=== PATIENT | female | born 1950 | race Caucasian/White ===

== ENCOUNTER 2023-08-13 21:35 | Inpatient (IN) | payer MEDICARE ==
[~2023-08-13 21:35] MED LIST: Iopamidol 300 61% 100 ML VIAL FS ONE
[2023-08-13 22:09] LABS: #Monocytes 1.1 10x3/uL (0.0-1.1); #Neutrophils 19.8 10x3/uL (1.5-8.4); %Basophils 0.1 % (0.0-2.0); %Lymphocytes 8.8 % (18.0-47.0); %Monocytes 4.6 % (0.0-10.0); %Neutrophils 85.9 % (40.0-75.0); Hematocrit 37.9 % (34.9-44.5); Hemoglobin 12.6 g/dL (12.0-15.5); Mean Corpuscular HGB CONC 33.2 g/dL (32.0-36.0); Mean Corpuscular Volume 87.3 fl (81.6-98.3); Mean Platelet Volume 11.6 fl (7.4-10.4); Platelet Count 353 10x3/uL (150-450); RBC Distribution Width 13.2 % (11.5-14.5); Red Blood Cell (RBC) Count 4.34 10x6/uL (3.90-5.03); White Blood Cell (WBC) Count 23.1 10x3/uL (3.5-10.5)
[2023-08-13] MEDS ORDERED: Nitroglycerin 0.4 MG TAB (25 Tab Bottle) SL PRN (22:13)
[2023-08-13] MEDS ORDERED: Acetaminophen/Codeine 30-300mg Tablet PO PRN (22:13)
[2023-08-13] MEDS ORDERED: cloNIDine 0.1 MG TAB PO PRN (22:19)
[2023-08-13] MEDS ORDERED: GUAIFENESIN SF SOLN 200 MG/10 ML UDCUP PO PRN (22:19)
[2023-08-13] MEDS ORDERED: Benzonatate 100 MG CAP PO PRN (22:19)
[2023-08-13] MEDS ORDERED: Zolpidem Tartrate 5 MG TAB PO PRN (22:19)
[2023-08-13 22:24] LABS: ALT (SGPT) 18 U/L (8-55); AST (SGOT) 29 U/L (5-34); Albumin 3.7 g/dL (3.4-4.8); Alkaline Phosphatase 64 U/L (40-110); Anion Gap 17 mmol/L (10-20); BUN (Urea Nitrogen) 24 mg/dL (9.8-20.1); Bilirubin, Total 0.3 mg/dL (0.2-1.2); Calc. Creatinine Clearance 0 mL/min (70-130); Calcium 8.4 mg/dL (7.8-10.44); Carbon Dioxide 19 mmol/L (23-31); Chloride 106 mmol/L (98-107); Estimated GFR 80; Globulin 2.6 g/dL (2.4-3.5); Glucose 142 mg/dL (83-110); Potassium 3.3 mmol/L (3.5-5.1); Protein, Total 6.3 g/dL (5.8-8.1); Sodium 139 mmol/L (136-145)
[2023-08-13 22:34] LABS: Troponin I 6.048 ng/mL (< 0.028)
[2023-08-13] MEDS ORDERED: Sodium Chloride 0.9% 1,000 ML IV SCH (23:00)
[2023-08-13 23:11] VITALS: TEMP 97.9
[2023-08-14] MEDS: Ondansetron ODT 4 MG TAB PO PRN ×2 (02:07→17:41)
[2023-08-14 04:46] LABS: Troponin I 5.298 ng/mL (< 0.028)
[2023-08-14] MEDS ORDERED: Promethazine HCl 12.5 MG, Admixture Fee 1 EACH in Sodium Chloride 0.9% 50 ML IVPB PRN (07:00)
[2023-08-14] MEDS: Carvedilol 6.25 MG TAB PO SCH ×2 (07:54→16:55)
[2023-08-14] MEDS: Isosorbide Mononitrate 30 MG ER.TAB PO SCH (07:55)
[2023-08-14] MEDS: Aspirin 81 mg Enteric Coated Tablet PO SCH (07:55)
[2023-08-14] MEDS ORDERED: Lisinopril 20 MG TAB PO SCH (09:00)
[2023-08-14 14:58] LABS: Anion Gap 13 mmol/L (10-20); BUN (Urea Nitrogen) 19 mg/dL (9.8-20.1); Calc. Creatinine Clearance 87 mL/min (70-130); Carbon Dioxide 25 mmol/L (23-31); Chloride 104 mmol/L (98-107); Estimated GFR 87; Glucose 137 mg/dL (83-110); Potassium 3.6 mmol/L (3.5-5.1); Sodium 138 mmol/L (136-145)
[2023-08-14] MEDS ORDERED: Furosemide 40 MG/4 ML VIAL SLOW IVP SCH (15:30)
[2023-08-14] MEDS: Potassium Chloride 20 MEQ TAB PO SCH (16:55)
[2023-08-14] MEDS ORDERED: Ondansetron PF 4 MG/2 ML Vial IVP PRN (17:52)
[2023-08-14] MEDS: Atorvastatin Calcium 20 MG TAB PO SCH (20:19)
[2023-08-14 20:27] LABS: T4 10.45 ug/dL (4.87-11.72)
[2023-08-15 03:57] LABS: #Eosinphils 0.1 10x3/uL (0.0-0.5); %Basophils 0.2 % (0.0-2.0); %Eosinophils 0.6 % (0.0-6.0); %Lymphocytes 18.3 % (18.0-47.0); %Monocytes 7.8 % (0.0-10.0); %Neutrophils 72.8 % (40.0-75.0); Hematocrit 32.9 % (34.9-44.5); Hemoglobin 10.9 g/dL (12.0-15.5); Mean Corpuscular HGB CONC 33.1 g/dL (32.0-36.0); Mean Corpuscular Hemoglobin 28.9 pg (27.0-33.0); Mean Corpuscular Volume 87.3 fl (81.6-98.3); Mean Platelet Volume 12.2 fl (7.4-10.4); Platelet Count 235 10x3/uL (150-450); RBC Distribution Width 13.7 % (11.5-14.5); Red Blood Cell (RBC) Count 3.77 10x6/uL (3.90-5.03); White Blood Cell (WBC) Count 12.4 10x3/uL (3.5-10.5)
[2023-08-15 04:19] LABS: Anion Gap 13 mmol/L (10-20); BUN (Urea Nitrogen) 16 mg/dL (9.8-20.1); Calc. Creatinine Clearance 75 mL/min (70-130); Calcium 8.1 mg/dL (7.8-10.44); Carbon Dioxide 25 mmol/L (23-31); Chloride 105 mmol/L (98-107); Estimated GFR 73; Glucose 103 mg/dL (83-110); Potassium 3.2 mmol/L (3.5-5.1); Sodium 140 mmol/L (136-145)
[2023-08-15 04:28] LABS: Troponin I 2.859 ng/mL (< 0.028)
[2023-08-15] MEDS: Furosemide 40 MG/4 ML VIAL SLOW IVP SCH ×2 (05:39→14:27)
[2023-08-15] MEDS: Levothyroxine Sodium 50 MCG TAB PO SCH (05:39)
[2023-08-15 05:48] VITALS: BMI 28.0
[2023-08-15] MEDS: Potassium Chloride 20 MEQ TAB PO SCH ×2 (07:44→16:33)
[2023-08-15] MEDS: Carvedilol 6.25 MG TAB PO SCH ×2 (07:44→16:33)
[2023-08-15 07:45] VITALS: BP 120/78
[2023-08-15] MEDS: Isosorbide Mononitrate 30 MG ER.TAB PO SCH (07:45)
[2023-08-15] MEDS: Aspirin 81 mg Enteric Coated Tablet PO SCH (07:45)
[2023-08-15] MEDS ORDERED: Lisinopril 5 MG TAB PO SCH (09:00)
[2023-08-15] MEDS ORDERED: LEVOTHYROXINE SODIUM 13 MCG PO SCH (09:00)
[2023-08-15 17:42] LABS: Anion Gap 14 mmol/L (10-20); BUN (Urea Nitrogen) 19 mg/dL (9.8-20.1); Calc. Creatinine Clearance 59 mL/min (70-130); Calcium 8.8 mg/dL (7.8-10.44); Carbon Dioxide 29 mmol/L (23-31); Chloride 102 mmol/L (98-107); Estimated GFR 55; Glucose 115 mg/dL (83-110); Potassium 3.4 mmol/L (3.5-5.1); Sodium 142 mmol/L (136-145)
[2023-08-15] MEDS: Atorvastatin Calcium 20 MG TAB PO SCH (20:05)
[2023-08-16 04:07] LABS: Anion Gap 13 mmol/L (10-20); BUN (Urea Nitrogen) 24 mg/dL (9.8-20.1); Calc. Creatinine Clearance 64 mL/min (70-130); Calcium 8.3 mg/dL (7.8-10.44); Carbon Dioxide 28 mmol/L (23-31); Chloride 104 mmol/L (98-107); Estimated GFR 60; Glucose 98 mg/dL (83-110); Potassium 3.5 mmol/L (3.5-5.1); Sodium 141 mmol/L (136-145)
[2023-08-16 04:21] LABS: #Eosinphils 0.2 10x3/uL (0.0-0.5); %Basophils 0.2 % (0.0-2.0); %Eosinophils 1.4 % (0.0-6.0); %Lymphocytes 18.6 % (18.0-47.0); %Monocytes 7.7 % (0.0-10.0); %Neutrophils 71.7 % (40.0-75.0); Hematocrit 33.8 % (34.9-44.5); Hemoglobin 11.1 g/dL (12.0-15.5); Mean Corpuscular HGB CONC 32.8 g/dL (32.0-36.0); Mean Corpuscular Hemoglobin 28.9 pg (27.0-33.0); Mean Platelet Volume 12.6 fl (7.4-10.4); Platelet Count 252 10x3/uL (150-450); RBC Distribution Width 13.8 % (11.5-14.5); Red Blood Cell (RBC) Count 3.84 10x6/uL (3.90-5.03); White Blood Cell (WBC) Count 12.6 10x3/uL (3.5-10.5)
[2023-08-16] MEDS: Levothyroxine Sodium 50 MCG TAB PO SCH (05:52)
[2023-08-16] MEDS: Aspirin 81 mg Enteric Coated Tablet PO SCH (07:48)
[2023-08-16] MEDS: Carvedilol 6.25 MG TAB PO SCH (07:48)
[2023-08-16] MEDS: Isosorbide Mononitrate 30 MG ER.TAB PO SCH (07:49)
[2023-08-16] MEDS ORDERED: Potassium Chloride 10 MEQ TAB PO SCH (08:00)
[2023-08-16] MEDS ORDERED: Spironolactone 25 MG TAB PO SCH (08:00)
[2023-08-16] MEDS ORDERED: Losartan 25 MG TAB PO SCH (09:00)
[2023-08-16] MEDS ORDERED: Furosemide 40 MG TAB PO SCH (09:00)
== END 2023-08-16 11:00 | disposition home or self-care (01) | DRG 280 ==
LOC: CSHCCL 21:35 → CSHICU 22:50
PROVIDERS: ADMIT Specialist; ATTEND Internal Medicine Cardiovascular Disease
PROC: 4A023N7 Measurement of Cardiac Sampling and Pressure, Left Heart, Percutaneous Approach (ICD-10-PCS; principal; 2023-08-13)
PROC: B2111ZZ Fluoroscopy of Multiple Coronary Arteries using Low Osmolar Contrast (ICD-10-PCS; 2023-08-13)
PROC: B2151ZZ Fluoroscopy of Left Heart using Low Osmolar Contrast (ICD-10-PCS; 2023-08-13)
DX: I21.11 ST elevation (STEMI) myocardial infarction involving right coronary artery (principal); I50.21 Acute systolic (congestive) heart failure; I48.0 Paroxysmal atrial fibrillation; E78.5 Hyperlipidemia, unspecified; E03.9 Hypothyroidism, unspecified; I25.10 Atherosclerotic heart disease of native coronary artery without angina pectoris; I11.0 Hypertensive heart disease with heart failure; Z90.710 Acquired absence of both cervix and uterus; Z98.890 Other specified postprocedural states; Z90.49 Acquired absence of other specified parts of digestive tract; Z79.899 Other long term (current) drug therapy; Z79.890 Hormone replacement therapy
CPT/HCPCS: 71045; 80048; 80053; 80061; 83880; 84436; 84443; 84484; 85025; 85347; 93005; 93010; 93306; 93458; 94760; 94762; 99152; C1769; C1894; J1650; J1940; J2405; J2550; J7050; Q0162; Q9967